=== PATIENT | female | born 1945 | race Caucasian/White ===

== ENCOUNTER 2018-10-23 10:27 | Outpatient (CLI) | payer MEDICARE ==
--- NOTE | 2018-10-23 13:18 | BD ---
DEXA DENSITOMETRY: INDICATIONS: A 73-year-old female for postmenopausal osteoporosis screening. FINDINGS: LUMBAR SPINE BMD (g/cm2) T-SCORE L1 0.830 -1.5 L2 0.860 -1.5 L3 0.830 -2.3 L4 0.858 -1.8 TOTAL 0.846 -1.8 FEMORAL NECK DENSITY 0.613 -2.1 TOTAL 0.799 -1.2 IMPRESSION: Bone mineral density of the lumbar and femoral neck both indicate osteopenia. TEN YEAR FRACTURE RISK: Major osteoporotic fracture: 30% Hip fracture: 12% POS: [facility]
== END 2018-10-23 10:28 | disposition home or self-care (01) ==
LOC: BICMAMMO 10:27
PROVIDERS: ATTEND Family Medicine
DX: Z13.820 Encounter for screening for osteoporosis (principal); M85.89 Other specified disorders of bone density and structure, multiple sites
CPT/HCPCS: 77080